=== PATIENT | male | born 1960 | race Caucasian/White ===

== ENCOUNTER 2018-11-04 01:37 | Inpatient (IN) | payer MEDICAID, OTHER ==
[~2018-11-04] VITALS: Ht 180.3 cm; Wt 87.1 kg
[2018-11-04] MEDS ORDERED: ONDANSETRON HCL 4MG/2ML INJ IV STA (02:46)
[2018-11-04] MEDS ORDERED: ASPIRIN 81MG TABLET PO ONE (03:00)
[2018-11-04] MEDS ORDERED: MAGNESIUM/ALUMINUM HYDROXIDE/SIMETHICONE 30ML UDC PO ONE (03:00)
[2018-11-04] MEDS ORDERED: VISCOUS LIDOCAINE 2% 15 ML UDC PO ONE (03:00)
[2018-11-04 03:06] LABS: BASOPHILS % 1.1 % (0.0-2.0); EOSINOPHILS % 4.4 % (0.0-5.0); HEMATOCRIT. 32.8 % (42.0-52.0); HEMOGLOBIN. 10.9 g/dL (14.0-18.0); LYMPHOCYTES % 20.5 % (20.0-50.0); MEAN CORPUSCULAR HEMOGLOBIN 28.1 pg (28.0-32.0); MEAN CORPUSCULAR VOLUME 84.5 fL (80.0-94.0); MONOCYTES % 8.4 % (2.0-8.0); NEUTROPHILS % 65.6 % (40.0-76.0); PLATELET 215 x1000/uL (130-400); RED BLOOD CELL COUNT 3.89 mill/uL (4.7-6.1); RED CELL DISTRIBUTION WIDTH 13.8 % (11.6-14.6)
[2018-11-04 03:13] LABS: CHLORIDE 108 mEq/L (98-107)
[2018-11-04] MEDS ORDERED: HYDROCODONE/ACETAMINOPHEN 5/325MG TABLET PO PRN (06:00)
[2018-11-04] MEDS ORDERED: ACETAMINOPHEN 325MG TABLET PO PRN (06:00)
[2018-11-04] MEDS ORDERED: DOCUSATE SODIUM 100MG CAPSULE PO PRN (06:00)
[2018-11-04] MEDS ORDERED: GUAIFENESIN 200MG/10ML SUGAR FREE UDC PO PRN (06:00)
[2018-11-04] MEDS ORDERED: MORPHINE SULFATE 2 MG/ML CPJ (NOT FOR IM USE) IV PRN (06:00)
[2018-11-04] MEDS ORDERED: MAGNESIUM/ALUMINUM HYDROXIDE/SIMETHICONE 30ML UDC PO PRN (06:00)
[2018-11-04] MEDS ORDERED: ONDANSETRON HCL 4MG/2ML INJ IV PRN (06:00)
[2018-11-04] MEDS ORDERED: CLONIDINE 0.1MG TABLET PO PRN (06:00)
[2018-11-04 07:19] LABS: CREATINE KINASE 284 IU/L (39-308); CREATINE KINASE MB FRACTION 3.5 ng/mL (0.5-3.6)
[2018-11-04] MEDS ORDERED: ENOXAPARIN 40MG/0.4ML SYR SUBCUT SCH (08:00)
[2018-11-04 09:00] VITALS: BP 108/66
[2018-11-04] MEDS ORDERED: AMLODIPINE 10MG TABLET PO SCH (09:00)
[2018-11-04] MEDS ORDERED: ASPIRIN 81MG EC TABLET PO SCH (09:00)
[2018-11-04 10:00] VITALS: BP 108/66
== END 2018-11-04 14:02 | disposition left against medical advice (07) | DRG 198 ==
LOC: ER 01:37 → 8WST 05:25 → EDBEDREQ 05:26 → EDBEDREQTM 05:26 → ENRESERV 07:42
PROVIDERS: ADMIT Hospitalist; ATTEND Hospitalist
DX: I24.9 Acute ischemic heart disease, unspecified (principal); E44.1 Mild protein-calorie malnutrition; D64.9 Anemia, unspecified; R00.1 Bradycardia, unspecified; Z53.21 Procedure and treatment not carried out due to patient leaving prior to being seen by health care provider; Z82.49 Family history of ischemic heart disease and other diseases of the circulatory system; Z98.1 Arthrodesis status; Z68.26 Body mass index [BMI] 26.0-26.9, adult
CPT/HCPCS: 36415; 71045; 82550; 82553; 83880; 84484; 93005; 93970; 96374; 99285; J1650; J2405

== ENCOUNTER 2018-11-04 22:27 | Inpatient (IN) | payer MEDICAID ==
[~2018-11-04] VITALS: Ht 180.3 cm; Wt 87.5 kg
[2018-11-05] MEDS ORDERED: ASPIRIN 81MG TABLET PO ONE (02:45)
[2018-11-05] MEDS ORDERED: NITROGLYCERIN 0.4MG TABLET SL SL PRN (02:45)
[2018-11-05 03:07] LABS: BASOPHILS % 0.3 % (0.0-2.0); EOSINOPHILS % 4.7 % (0.0-5.0); HEMATOCRIT. 35.4 % (42.0-52.0); HEMOGLOBIN. 11.5 g/dL (14.0-18.0); LYMPHOCYTES % 20.2 % (20.0-50.0); MEAN CORPUSCULAR HEMOGLOBIN 27.7 pg (28.0-32.0); MEAN CORPUSCULAR VOLUME 85.4 fL (80.0-94.0); MEAN PLATELET VOLUME 7.8 fl (7.4-10.4); MONOCYTES % 9.7 % (2.0-8.0); NEUTROPHILS % 65.1 % (40.0-76.0); PLATELET 239 x1000/uL (130-400); RED BLOOD CELL COUNT 4.15 mill/uL (4.7-6.1); RED CELL DISTRIBUTION WIDTH 13.7 % (11.6-14.6)
[2018-11-05 05:33] VITALS: BP 109/74
[2018-11-05 05:34] VITALS: BP 109/74
[2018-11-05] MEDS ORDERED: ONDANSETRON HCL 4MG/2ML INJ IV PRN (09:45)
[2018-11-05] MEDS ORDERED: GUAIFENESIN 200MG/10ML SUGAR FREE UDC PO PRN (09:45)
[2018-11-05] MEDS ORDERED: MAGNESIUM/ALUMINUM HYDROXIDE/SIMETHICONE 30ML UDC PO PRN (09:45)
[2018-11-05] MEDS ORDERED: CLONIDINE 0.1MG TABLET PO PRN (09:45)
[2018-11-05] MEDS ORDERED: HYDROCODONE/ACETAMINOPHEN 5/325MG TABLET PO PRN (09:45)
[2018-11-05] MEDS ORDERED: DOCUSATE SODIUM 100MG CAPSULE PO PRN (09:45)
[2018-11-05] MEDS ORDERED: ACETAMINOPHEN 325MG TABLET PO PRN (09:45)
[2018-11-05] MEDS ORDERED: DIPHENHYDRAMINE 50MG/ML VIAL IV PRN (09:45)
[2018-11-05] MEDS ORDERED: REGADENOSON 0.4 MG/5 ML IV NR (10:00)
[2018-11-05] MEDS ORDERED: REGADENOSON 0.4 MG/5 ML IV ONE (11:45)
[2018-11-05 12:00] VITALS: BP 120/82
[2018-11-05] MEDS ORDERED: ENOXAPARIN 80MG/0.8ML SYR SUBCUT NR (12:45)
[2018-11-05] MEDS: SODIUM CHLORIDE 0.9% INJ 3ML FLUSH IVF SCH ×2 (14:33→21:07)
[2018-11-05 16:00] VITALS: BP 141/79
[2018-11-05 16:03] LABS: *AMPHETAMINES SCREEN URINE NEGATIVE (NEGATIVE); *BARBITURATES SCREEN URINE NEGATIVE (NEGATIVE); *BENZODIAZEPINES SCREEN URINE NEGATIVE (NEGATIVE); *COCAINE SCREEN URINE NEGATIVE (NEGATIVE); METHADONE URINE SCREEN NEGATIVE (NEGATIVE)
[2018-11-05 16:04] LABS: CANNABINOID URINE SCREEN NEGATIVE (NEGATIVE); OPIATES URINE SCREEN NEGATIVE (NEGATIVE); PHENCYCLIDINE URINE SCREEN NEGATIVE (NEGATIVE)
[2018-11-05 20:00] VITALS: BP 126/73
[2018-11-06] VITALS: BP 98/64
[2018-11-06 04:00] VITALS: BP 99/45
[2018-11-06] MEDS: SODIUM CHLORIDE 0.9% INJ 3ML FLUSH IVF SCH (05:10)
[2018-11-06 07:29] LABS: CHLORIDE 110 mEq/L (98-107)
[2018-11-06 07:32] LABS: BASOPHILS % 1.2 % (0.0-2.0); EOSINOPHILS % 4.9 % (0.0-5.0); HEMATOCRIT. 33.6 % (42.0-52.0); HEMOGLOBIN. 11.2 g/dL (14.0-18.0); LYMPHOCYTES % 20.1 % (20.0-50.0); MEAN CORPUSCULAR HEMOGLOBIN 28.1 pg (28.0-32.0); MEAN PLATELET VOLUME 8.7 fl (7.4-10.4); MONOCYTES % 7.9 % (2.0-8.0); NEUTROPHILS % 65.9 % (40.0-76.0); PLATELET 208 x1000/uL (130-400); RED BLOOD CELL COUNT 3.99 mill/uL (4.7-6.1); RED CELL DISTRIBUTION WIDTH 13.6 % (11.6-14.6)
[2018-11-06 07:38] LABS: LDL CHOLESTEROL 85 mg/dL (5-100)
[2018-11-06 07:39] LABS: CREATINE KINASE 172 IU/L (39-308); HDL CHOLESTEROL 34 mg/dL (40-59)
[2018-11-06 07:42] LABS: CREATINE KINASE MB FRACTION 2.1 ng/mL (0.5-3.6)
[2018-11-06 07:49] VITALS: BP 113/72
[2018-11-06] MEDS ORDERED: ASPIRIN 81MG EC TABLET PO SCH (09:00)
[2018-11-06] MEDS ORDERED: AMLODIPINE 10MG TABLET PO SCH (09:00)
== END 2018-11-06 09:20 | disposition left against medical advice (07) | DRG 198 ==
LOC: ER 22:27 → 7WST 11-05 04:38 → EDBEDREQ 11-05 04:44 → EDBEDREQTM 11-05 04:44 → ENRESERV 11-05 04:52
PROVIDERS: ADMIT Internal Medicine; ATTEND Internal Medicine
DX: I20.0 Unstable angina (principal); E46 Unspecified protein-calorie malnutrition; Z53.21 Procedure and treatment not carried out due to patient leaving prior to being seen by health care provider; I10 Essential (primary) hypertension; R00.1 Bradycardia, unspecified; Z98.1 Arthrodesis status; Z82.49 Family history of ischemic heart disease and other diseases of the circulatory system; Z68.26 Body mass index [BMI] 26.0-26.9, adult
CPT/HCPCS: 36415; 71045; 80061; 80305; 82550; 82553; 83735; 83880; 84484; 85379; 93005; 93306; 99285; J1650